=== PATIENT | female | born 1950 | race Caucasian/White ===

== ENCOUNTER 2018-11-08 17:11 | Emergency (ER) | payer MEDICARE, OTHER ==
--- NOTE | 2018-11-08 17:31 | ED Physician Documentation ---
PD HPI TRUNK INJURY - Stated complaint Stated Complaint: RT SIDE VS BIG DOOR - Chief complaint Chief Complaint: Ext Problem - History obtained from History obtained from: Patient - History of Present Illness Location: Right chest, Other (right lateral hip) Type of injury: Blunt / blow (she says a large door opened at [facility] suddenly and struck her on right shoulder/hip/chest and pushed her into clothes rack. filled out paperwork with real estate sales manager there, then headed home. developed more soreness to areas and also some muscular pain on side of neck.) Timing - onset: How many hours ago (2), Today Timing - duration: Hours (2) Timing - details: Abrupt onset, Still present (increasing pain the past hour) Quality: Pain (lateral hip, shoulder, posterior right ribs), Spasm (side of neck and around scapular area) Worsened by: Moving, Palpating Associated symtptoms: No: Weakness, Numbness Contributing factors: No: Anticoagulated Where injury occured: Other ([facility]) Similar symptoms before: Has not had sx before Recently seen: Not recently seen Review of Systems Skin: denies: Abrasion (s), Laceration (s) Musculoskeletal: reports: Neck pain (right lateral), Back pain (right scapular area), Extremity pain (right shoulder and lateral right hip) Neurologic: denies: Altered mental status, Headache PD PAST MEDICAL HISTORY - Past Medical History Cardiovascular: Hypertension, [place] Respiratory: Pneumonia Endocrine/Autoimmune: Type 2 diabetes Musculoskeletal: Osteoarthritis - Past Surgical History Past Surgical History: Yes General: Cholecystectomy - Present Medications Home Medications: Ambulatory Orders Medication Instructions Recorded Confirmed Albuterol [Ventolin Hfa] 2 puffs INH QID PRN 11/20/13 11/20/13 Aspirin Chewable [St To 81 mg PO DAILY 11/20/13 11/20/13 Aspirin] Estrogen,Con/M-Progest Acet 1 tab ORAL DAILY 11/20/13 11/20/13 [Prempro 0.45-1.5 mg Tablet] Gabapentin 300 mg PO DAILY 11/20/13 11/20/13 Lisinopril 0 mg PO DAILY 11/20/13 11/20/13 metFORMIN [Glucophage] 0 mg PO BID 11/20/13 11/20/13 traZODone [Desyrel] 0 mg OP DAILY 11/20/13 11/20/13 Atorvastatin Calcium 40 mg PO DAILY 11/08/18 11/08/18 Cholecalciferol (Vitamin D3) 1,000 unit PO 11/08/18 11/08/18 [Vitamin D3] Methocarbamol [Robaxin] 500 mg PO Q6H PRN #20 tablet 11/08/18 Naproxen 375 mg PO BID #20 tablet 11/08/18 Sitagliptin Phosphate [Januvia] 50 mg PO DAILY 11/08/18 11/08/18 Tramadol HCl 50 mg PO Q6H PRN #20 tablet 11/08/18 - Allergies Allergies/Adverse Reactions: Allergies Allergy/AdvReac Type Severity Reaction Status Date / Time latex Allergy Rash Verified 11/08/18 17:22 morphine Allergy Hallucinati Verified 11/08/18 17:22 ons - Social History Does the pt smoke?: No Smoking Status: Never smoker Does the pt drink ETOH?: No Does the pt have substance abuse?: No - POLST Patient has POLST: No PD ED PE NORMAL - Vitals Vital signs reviewed: Yes - General General: Alert and oriented X 3, No acute distress, Well developed/nourished - HEENT HEENT: Atraumatic - Neck Neck: Supple, no meningeal sign, No bony TTP (some tender lower right lateral neck muscles. ), No adenopathy - Cardiac Cardiac: RRR, No murmur - Respiratory Respiratory: Clear bilaterally, Other (right infrascapular area tender without deformity. Lateral shoulder and lateral right hip with soft tissue tenderness but no noted deformity and have ROM of the joints. ) - Abdomen Abdomen: Soft, Non tender - Derm Derm: Normal color, Warm and dry - Neuro Neuro: Alert and oriented X 3, No motor deficit, No sensory deficit, Normal speech Results - Vitals Vitals: Vital Signs - 24 hr 11/08/18 11/08/18 17:16 18:52 Temperature 36.6 C Heart Rate 62 64 Respiratory 18 18 Rate Blood Pressure 133/109 H 122/53 L O2 Saturation 99 97 Oxygen O2 Source Room air - Rads (name of study) chest xray Radiology: Prelim report reviewed (no acute injury), See rad report right hip Radiology: Prelim report reviewed (no acute injury), See rad report PD MEDICAL DECISION MAKING - ED course Complexity details: reviewed results, considered differential, d/w patient Departure - Departure Disposition: 01 Home, Self Care Clinical Impression: Contusion, hip Qualifiers: Encounter type: initial encounter Laterality: right Qualified Code(s): S70.01XA - Contusion of right hip, initial encounter Chest wall contusion Qualifiers: Encounter type: initial encounter Laterality: right Qualified Code(s): S20.211A - Contusion of right front wall of thorax, initial encounter Right shoulder strain Qualifiers: Encounter type: initial encounter Qualified Code(s): S46.911A - Strain of unspecified muscle, fascia and tendon at shoulder and upper arm level, right arm, initial encounter Condition: Stable Record reviewed to determine appropriate education?: Yes Instructions: ED Contusion Chest Wall, ED Contusion Hip Follow-Up: FEDE AGUILAR [Primary Care Provider] - Prescriptions: Methocarbamol [Robaxin] 500 mg PO Q6H PRN #20 tablet PRN Reason: Spasms Naproxen 375 mg PO BID #20 tablet Tramadol HCl 50 mg PO Q6H PRN #20 tablet PRN Reason: Pain Comments: No signs of fractures on your x-rays. I presume you will be sore from being in struck by the door and also the jostling of the muscles. Use some anti- inflammatories such as naproxen or ibuprofen 2-3 times a day with food. Add Robaxin muscle relaxant if needed for stiffness and spasms. Add Tylenol or pain medicine if needed for pains. I would anticipate being sore just in the short- term over the next few days. Follow-up with your primary care if not improved into next week. Discharge Date/Time: 11/08/18 18:52
[2018-11-08] MEDS ORDERED: METHOCARBAMOL 500 MG TABLET PO STA (17:50)
[2018-11-08] MEDS ORDERED: KETOROLAC 30 MG/ML VIAL IM STA (17:50)
[2018-11-08] MEDS ORDERED: ACETAMINOPHEN 325 MG TABLET PO STA (17:50)
--- NOTE | 2018-11-08 18:43 | XRAY Report ---
Reason: struck by door; pain right lateral ribs/mid thorac Procedure Date: 11/08/2018 Accession Number: [id number] / [id number] Procedure: XR - Chest 2 View X-Ray CPT Code: 91247 FULL RESULT: EXAM: CHEST RADIOGRAPHY, 2 VIEWS EXAM DATE: 11/08/2018 06:32 PM. CLINICAL HISTORY: Struck by door with pain right lateral ribs/mid thorax in a 68-year-old female. COMPARISON: CHEST 2 VIEW PA/LAT 11/20/2013 5:55 PM. TECHNIQUE: Upright PA and lateral views. FINDINGS: Lungs/Pleura: No focal opacities evident. No pleural effusion. No pneumothorax. Normal volumes. Mediastinum: Heart size normal, without pulmonary vascular congestion or adenopathy. Other: Trachea is midline. Osseous structures unremarkable for age. IMPRESSION: Unremarkable chest for age and body size, stable. No posttraumatic abnormality noted. RADIA
--- NOTE | 2018-11-08 18:45 | XRAY Report ---
Reason: struck by large door at [facility] Procedure Date: 11/08/2018 Accession Number: [id number] / [id number] Procedure: XR - Hip w/Pelvis 2-3V RT CPT Code: FULL RESULT: EXAM: PELVIS FOR RIGHT HIP RADIOGRAPHY, 2 VIEWS EXAM DATE: 11/08/2018 06:32 PM. CLINICAL HISTORY: Struck by large door at [facility] with injury right hip and right hip pain in a 68-year-old female. COMPARISON: None. TECHNIQUE: AP view of the pelvis and both hips and coned-down frog-leg lateral view right hip performed. FINDINGS: Bones: Normal. No fractures or bone lesion. Joints: Normal. No dislocation. The hip joint space is preserved. Soft Tissues: Normal. No soft tissue swelling. IMPRESSION: Normal examination. No posttraumatic abnormality in the pelvis or right hip noted. RADIA
[2018-11-08 18:52] VITALS: BP 122/53
== END 2018-11-08 18:52 | disposition home or self-care (01) ==
LOC: ED 17:11
DX: S46.911A Strain of unspecified muscle, fascia and tendon at shoulder and upper arm level, right arm, initial encounter (principal); S70.01XA Contusion of right hip, initial encounter; S20.211A Contusion of right front wall of thorax, initial encounter; M54.2 Cervicalgia; W20.8XXA Other cause of strike by thrown, projected or falling object, initial encounter; Y93.89 Activity, other specified; Y92.512 Supermarket, store or market as the place of occurrence of the external cause; I10 Essential (primary) hypertension; E11.9 Type 2 diabetes mellitus without complications; Z79.84 Long term (current) use of oral hypoglycemic drugs; Z79.82 Long term (current) use of aspirin
CPT/HCPCS: 71046; 73502; 96372; 99283; A9270

== ENCOUNTER 2019-02-04 17:55 | Emergency (ER) | payer MEDICARE, OTHER ==
[2019-02-04 19:11] LABS: BASOPHILS % (AUTO) 0.2 %; EOSINOPHILS # (AUTO) 0.1 10^3/uL (0.0-0.7); EOSINOPHILS % (AUTO) 1.7 %; HGB - HEMOGLOBIN 10.5 g/dL (12.0-16.0); LYMPHOCYTES # (AUTO) 2.7 10^3/uL (1.5-3.5); LYMPHOCYTES % (AUTO) 33.5 %; MEAN CORPUSCULAR HEMOGLOBIN 29.8 pg (27.0-31.0); MEAN CORPUSCULAR HGB CONC 31.4 g/dL (32.0-36.0); MEAN CORPUSCULAR VOLUME 94.9 fL (81.0-99.0); MEAN PLATELET VOLUME 9.5 fL (7.9-10.8); MONOCYTES # (AUTO) 0.4 10^3/uL (0.0-1.0); MONOCYTES % (AUTO) 5.2 %; NEUTROPHILS # (AUTO) 4.8 10^3/uL (1.5-6.6); NEUTROPHILS % (AUTO) 59.2 %; PLT - PLATELET COUNT 349 10^3/uL (130-450); RED BLOOD COUNT 3.52 10^6/uL (4.20-5.40); RED CELL DISTRIBUTION WIDTH 11.9 % (12.0-15.0); WHITE BLOOD COUNT 8.1 x10^3/uL (4.8-10.8)
[2019-02-04 19:28] LABS: ALBUMIN 3.9 g/dL (3.2-5.5); ALBUMIN/GLOBULIN RATIO 1.1 (1.0-2.2); BILIRUBIN,TOTAL 0.2 mg/dL (0.2-1.0); CALCIUM 9.5 mg/dL (8.5-10.3); TOTAL PROTEIN 7.6 g/dL (6.7-8.2)
[2019-02-04 19:37] LABS: BILIRUBIN,URINE NEGATIVE (NEGATIVE); CLARITY,URINE CLEAR (CLEAR); GLUCOSE, URINE (UA) 500 mg/dL (NEGATIVE); KETONES,URINE (UA) NEGATIVE (NEGATIVE); LEUKOCYTE ESTERASE, URINE NEGATIVE (NEGATIVE); NITRITE,URINE NEGATIVE (NEGATIVE); OCCULT BLOOD,URINE NEGATIVE (NEGATIVE); PROTEIN,URINE NEGATIVE (NEGATIVE); UROBILINOGEN,URINE 0.2 (NORMAL) E.U./dL (NORMAL)
--- NOTE | 2019-02-04 19:52 | ED Physician Documentation ---
PD HPI ALTERED MENTAL STATUS - Stated complaint Stated Complaint: HIGH SUGAR LEVEL - Chief complaint Chief Complaint: General - History obtained from History obtained from: Patient - History of Present Illness Timing - onset: Today, How many days ago (she has noted increasingly higher sugars from 140s to 200s since change in her DM med few weeks ago, from Metformin to Glypizide (and halving of her junivia) due to elevation of her Creatinine. She was feeling okay, with maybe some increased urination. Checked sugar this evening and was about 320, so caller her DM Nurse educator, who told her to go the the ER right away.) Timing - duration: Days Timing - details: Gradual onset, Waxing and waning Quality / character: No: Less responsive, Unresponsive, Confused Associated symptoms: No: Fever, Headache, Stiff neck, Dyspnea, Cough, NVD Contributing factors: Recent med change. 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 d/c metformin and halved dose Januvia, and started Glypizide 5 mg daily. Has noted some increased trend in sugars with this.) Review of Systems Constitutional: denies: Fever, Chills, Myalgias Nose: denies: Rhinorrhea / runny nose, Congestion Throat: denies: Sore throat Cardiac: denies: Chest pain / pressure Respiratory: denies: Cough GI: denies: Abdominal Pain, Nausea, Vomiting : reports: Frequency. denies: Dysuria Skin: denies: Rash Neurologic: denies: Generalized weakness, Focal weakness, Numbness Endocrine: denies: Weight loss PD PAST MEDICAL HISTORY - Past Medical History Past Medical History: Yes Cardiovascular: Hypertension, [place] Respiratory: Pneumonia Endocrine/Autoimmune: Type 2 diabetes : Other Musculoskeletal: Osteoarthritis - Past Surgical History Past Surgical History: Yes General: Cholecystectomy - Present Medications Home Medications: Ambulatory Orders Medication Instructions Recorded Confirmed Albuterol [Ventolin Hfa] 2 puffs INH QID PRN 11/20/13 11/20/13 Aspirin Chewable [St To 81 mg PO DAILY 11/20/13 11/20/13 Aspirin] Estrogen,Con/M-Progest Acet 1 tab ORAL DAILY 11/20/13 11/20/13 [Prempro 0.45-1.5 mg Tablet] Gabapentin 300 mg PO DAILY 11/20/13 11/20/13 Lisinopril 0 mg PO DAILY 11/20/13 11/20/13 metFORMIN [Glucophage] 0 mg PO BID 11/20/13 11/20/13 traZODone [Desyrel] 0 mg OP DAILY 11/20/13 11/20/13 Atorvastatin Calcium 40 mg PO DAILY 11/08/18 11/08/18 Cholecalciferol (Vitamin D3) 1,000 unit PO 11/08/18 11/08/18 [Vitamin D3] Methocarbamol [Robaxin] 500 mg PO Q6H PRN #20 tablet 11/08/18 Naproxen 375 mg PO BID #20 tablet 11/08/18 Sitagliptin Phosphate [Januvia] 50 mg PO DAILY 11/08/18 11/08/18 Tramadol HCl 50 mg PO Q6H PRN #20 tablet 11/08/18 - Allergies Allergies/Adverse Reactions: Allergies Allergy/AdvReac Type Severity Reaction Status Date / Time latex Allergy Rash Verified 11/08/18 17:22 morphine Allergy Hallucinati Verified 11/08/18 17:22 ons - Social History Does the pt smoke?: No Smoking Status: Never smoker Does the pt drink ETOH?: No Does the pt have substance abuse?: No - Immunizations Immunizations are current?: Yes - POLST Patient has POLST: No PD ED PE NORMAL - Vitals Vital signs reviewed: Yes - General General: Alert and oriented X 3, No acute distress, Well developed/nourished - HEENT HEENT: Pharynx benign - Neck Neck: Supple, no meningeal sign, No adenopathy - Cardiac Cardiac: RRR, No murmur - Respiratory Respiratory: Clear bilaterally - Abdomen Abdomen: Normal bowel sounds, Soft, Non tender - Back Back: No CVA TTP - Derm Derm: Normal color - Extremities Extremities: No deformity, No tenderness to palpate, Normal ROM s pain, No edema, No calf tenderness / cord - Neuro Neuro: Alert and oriented X 3, No motor deficit, Normal speech Eye Opening: Spontaneous Motor: Obeys Commands Verbal: Oriented GCS Score: 15 Results - Vitals Vitals: Vital Signs - 24 hr 02/04/19 02/04/19 18:40 20:44 Temperature 36.5 C Heart Rate 76 62 Respiratory 16 18 Rate Blood Pressure 163/44 H 148/76 H O2 Saturation 99 98 Oxygen O2 Source Room air - Labs Labs: Laboratory Tests 02/04/19 02/04/19 02/04/19 18:51 18:55 19:07 WBC 8.1 RBC 3.52 L Hgb 10.5 L Hct 33.4 L MCV 94.9 MCH 29.8 MCHC 31.4 L RDW 11.9 L Plt Count 349 MPV 9.5 Neut # (Auto) 4.8 Lymph # (Auto) 2.7 Catron # (Auto) 0.4 Eos # (Auto) 0.1 Baso # (Auto) 0.0 Absolute Nucleated RBC 0.00 Nucleated RBC % 0.0 Sodium Potassium Chloride Carbon Dioxide Anion Gap BUN Creatinine Estimated GFR (MDRD) Glucose POC Whole Bld Glucose 233 H Glycated Hemoglobin 8.8 H Estim Average Glucose 206 H Calcium Total Bilirubin AST ALT Alkaline Phosphatase Total Protein Albumin Globulin Albumin/Globulin Ratio Lipase Urine Color Urine Clarity Urine pH Ur Specific [place] Urine Protein Urine Glucose (UA) Urine Ketones Urine Occult Blood Urine Nitrite Urine Bilirubin Urine Urobilinogen Ur Leukocyte Esterase Ur Microscopic Review Urine Culture Comments 02/04/19 02/04/19 19:07 19:30 WBC RBC Hgb Hct MCV MCH MCHC RDW Plt Count MPV Neut # (Auto) Lymph # (Auto) Catron # (Auto) Eos # (Auto) Baso # (Auto) Absolute Nucleated RBC Nucleated RBC % Sodium 141 Potassium 4.3 Chloride 102 Carbon Dioxide 29 Anion Gap 10.0 BUN 17 Creatinine 2.0 H Estimated GFR (MDRD) 25 L Glucose 237 H POC Whole Bld Glucose Glycated Hemoglobin Estim Average Glucose Calcium 9.5 Total Bilirubin 0.2 AST 12 ALT 13 Alkaline Phosphatase 112 Total Protein 7.6 Albumin 3.9 Globulin 3.7 Albumin/Globulin Ratio 1.1 Lipase 38 Urine Color YELLOW Urine Clarity CLEAR Urine pH 5.0 Ur Specific [place] 1.025 Urine Protein NEGATIVE Urine Glucose (UA) 500 H Urine Ketones NEGATIVE Urine Occult Blood NEGATIVE Urine Nitrite NEGATIVE Urine Bilirubin NEGATIVE Urine Urobilinogen 0.2 (NORMAL) Ur Leukocyte Esterase NEGATIVE Ur Microscopic Review NOT INDICATED Urine Culture Comments NOT INDICATED PD MEDICAL DECISION MAKING - ED course Complexity details: considered differential (hyperglycemic without symptoms. 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 Increase your glipizide from 2.5 to 5 mg daily. Check your sugars twice daily for the next week. Talk with your primary care office in the next several days to let him know how your blood sugars are trending. I printed copies of your blood tests so you can tell them some of the numbers if they ask. Discharge Date/Time: 02/04/19 20:46
[2019-02-04 20:34] LABS: HB2 TOTAL 10.8 g/dL; HEMOGLOBIN A1C 0.79 g/dL; HEMOGLOBIN A1C % 8.8 % (4.6-6.2)
[2019-02-04 20:45] VITALS: BP 148/76
== END 2019-02-04 20:46 | disposition home or self-care (01) ==
LOC: ED 17:55
DX: E11.65 Type 2 diabetes mellitus with hyperglycemia (principal); Z79.84 Long term (current) use of oral hypoglycemic drugs; I10 Essential (primary) hypertension; Z79.82 Long term (current) use of aspirin
CPT/HCPCS: 36415; 80053; 81001; 81003; 83036; 83690; 85025; 87086; 99283; 99284

== ENCOUNTER 2019-03-29 11:57 | Outpatient (CLI) | payer MEDICARE, OTHER ==
--- NOTE | 2019-03-29 14:20 | MRI Report ---
Reason: PARESTHESIA OF SKIN, HTN, HLD, DM Procedure Date: 03/29/2019 Accession Number: [id number] / [id number] Procedure: MRI - Brain W/O CPT Code: Final Report FULL RESULT: MRI BRAIN WITHOUT CONTRAST INDICATION: 68-year-old female. Numbness right face, arm and hand. Concern for possible TIA. Please assess. TECHNIQUE: 1. T1-weighted sagittal. 2. Coronal fat-saturated T2. 3. Axial T1 3D MP RAGE, FLAIR, T2* and DWI. COMPARISON: None. FINDINGS: There is mild generalized prominence of the cerebral cortical sulci and cerebellar folia, considered well within normal limits for stated age. Ventricular size is normal. A mild to moderate amount of white matter disease is identified in the supratentorial brain, manifested as a focal and confluent T2 hyperintensities that are scattered throughout the periventricular, deep and subcortical white matter bilaterally. A frontoparietal distribution predominates. The signal intensity of the cortex and white matter is otherwise unremarkable. There appear to be flow voids for the main intracranial arteries. No abnormal diffusion restriction is demonstrated. There is no evidence of acute or chronic hemorrhage on the T2* GRE sequence. Of note, 2 GRE sequences were performed. The initial series (labeled series 601) appears to demonstrate multiple foci of magnetic susceptibility artifact in the mid to upper brainstem (riky and pontomesencephalic junction). However, on the second series (labeled series 801) these findings have not been re-created, confirming that they represent artifact rather than true pathology. There is no abnormal extra-axial fluid collection. No mass effect or midline shift. Limited evaluation of the orbits reveals no gross pathology. Mild mucosal thickening is seen scattered throughout the ethmoid aerosols. The paranasal sinuses are otherwise essentially clear. No air-fluid level is demonstrated. There is a tiny amount of fluid at the left mastoid tip of uncertain etiology but doubtful clinical significance. No soft tissue swelling seen overlying the left mastoid to confirm the presence of active infection. In addition, there is no evidence of an obstructing nasopharyngeal mass. IMPRESSION: 1. A mild to moderate amount of white matter disease is identified as described. The findings are relatively nonspecific; however, this most likely represents chronic microangiopathy. 2. No other significant intracranial findings on this unenhanced brain MRI. In particular, there is no evidence of infarction, hemorrhage or other acute brain pathology.
== END 2019-03-29 11:58 | disposition home or self-care (01) ==
LOC: DI 11:57
PROVIDERS: ATTEND Internal Medicine
DX: R90.82 White matter disease, unspecified (principal); R20.2 Paresthesia of skin
CPT/HCPCS: 70551

== ENCOUNTER 2019-04-18 09:08 | Outpatient (CLI) | payer MEDICARE, OTHER ==
--- NOTE | 2019-04-18 14:43 | MRI Report ---
Reason: PARESTHESIA OF SKIN Procedure Date: 04/18/2019 Accession Number: [id number] / [id number] Procedure: MRI - Angio Neck W/O (MRA) CPT Code: Final Report FULL RESULT: EXAM: MR ANGIOGRAM NECK WITHOUT CONTRAST. EXAM DATE: 04/18/2019 10:12 AM. CLINICAL HISTORY: 68-year-old presenting with paresthesias of the skin. Evaluate for vascular pathology. COMPARISON: BRAIN W/O 03/29/2019 12:33 PM. TECHNIQUE: Multiplanar, multisequence MRA sequences of the neck were performed. Other: None. Post-processing: Multiplanar 3D MIP reconstructions. IV Contrast: None. Evaluation of arterial stenosis is based on a NASCET method of measurement. FINDINGS: RIGHT Common Carotid: Patent. No dissection or significant stenosis. Internal Carotid: Patent. No dissection or significant stenosis. External Carotid: Patent. No dissection or significant stenosis. Vertebral: Patent. No dissection or significant stenosis. LEFT Common Carotid: Patent. No dissection or significant stenosis. Internal Carotid: Patent. No dissection or significant stenosis. External Carotid: Patent. No dissection or significant stenosis. Vertebral: Arises from the aortic arch. Hypoplastic compared to the right. No definite dissection. No high-grade stenosis. Intracranial Circulation: No stenoses or aneurysms in the visualized portion of the intracranial vasculature. Other: The soft tissues, bones, and lung apices are unremarkable. IMPRESSION: 1. The vasculature of the neck demonstrates no definite high-grade stenosis or definite dissection. RADIA
== END 2019-04-18 09:09 | disposition home or self-care (01) ==
LOC: DI 09:08
PROVIDERS: ATTEND Internal Medicine
DX: R20.2 Paresthesia of skin (principal)
CPT/HCPCS: 70547